=== PATIENT | male | born 1995 | race African-American/Black ===

== ENCOUNTER 2019-12-31 16:50 | Inpatient (IN) ==
--- NOTE | 2019-12-31 17:16 | PROVIDER DOCUMENTATION ---
HPI-Male Problem - General Chief Complaint: Syncope Stated Complaint: SYNCOPE Time Seen by Provider: 12/31/19 16:56 Source: patient Allergies/Adverse Reactions: Patient Allergies Allergy/AdvReac Type Severity Reaction Status Date / Time No Known Allergies Allergy Verified 12/31/19 16:54 Home Medications: Home Medication List Medication Instructions Recorded Confirmed Last Taken Type NK [No Home Medications] 12/31/19 12/31/19 Unknown History - History of Present Illness-Male Nature of Presenting Problem: Patient is a 24yo M who presents with complaints of L testicular and L lower abdominal pain which suddenly began approximately 1hr ago. 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 While in ED waiting room, he was vomiting in the bathroom, had a syncopal episode, and was escorted immediately to a room by staff. Reports he believes he passed out d/t pain and vomiting. Patient states he has not voided since earlier this morning, as he was asleep most of the day. Reports last BM was 15 mins ago and was normal. Denies fever, penile discharge, diarrhea, blood in emesis/stool, dizziness, SOB, or CP. Location of Complaint: reports: LLQ, scrotal (L) Radiation: reports: none Quality of Pain: reports: sharp, stabbing Severity in ED: reports: moderate Onset/Duration: reports: 1 hour ago Timing: reports: still present Context/Activities at Onset: reports: sleep Last urinated? (time): 07:45 (pt reports he was sleeping during the day until pain) Associated Symptoms: reports: pain/swelling in testicle (L) Associated Symptoms: reports: nausea, syncope, vomiting. denies: constipation, diarrhea, fever/chills Similar Symptoms Previously?: No Recently seen or treated by another doctor?: No Review of Systems - Adult - REVIEW OF SYSTEMS - ADULT Constitutional: reports: no symptoms reported. denies: chills, fever Eyes: reports: no symptoms reported Ears, Nose, Mouth & Throat: reports: no symptoms reported Cardiovascular: reports: no symptoms reported. denies: chest pain, palpitations Respiratory: reports: no symptoms reported. denies: cough, shortness of breath Gastrointestinal: reports: see HPI, abdominal pain, nausea, vomiting. denies: diarrhea Genitourinary: reports: see HPI, other (L testicular pain). denies: discharge Musculoskeletal: reports: no symptoms reported Integumentary: reports: no symptoms reported Neurological: reports: see HPI, syncope. denies: dizziness/vertigo, headache/migraines, paresthesia Psychiatric: reports: no symptoms reported Endocrine: reports: no symptoms reported Past History - Adult - PAST MEDICAL HISTORY-ADULT Review of Records: reports: Nursing Assessment Review, Medications Reviewed Major Childhood Illnesses: reports: denies history Cardiovascular: reports: denies history Respiratory: reports: denies history Gastrointestinal: reports: denies history Obstetrical/Gynecological: reports: denies history Genitourinary: reports: denies history Musculoskeletal: reports: denies history Neurological: reports: denies history Endocrine/Immune: reports: denies history Other Conditions: reports: denies history - PRIOR SURGERIES/PROCEDURES Surgical/Procedure History: reports: tonsillectomy - IMMUNIZATION STATUS Childhood Immunizations: See Nurse Assessment Flu Vaccine: See Nurse Assessment - FAMILY HISTORY Family History: reviewed, not pertinent - SOCIAL HISTORY Smoking: denies, non-smoker Physical Exam-General - PHYSICAL EXAM-ADULT Initial Vital Signs Reviewed: Yes - CONSTITUTIONAL General Appearance: alert, mild distress. negative: lethargic, slow to respond - EYES Eyes: PERRL/EOMI, pink conjunctivae. negative: EOM palsy, photophobia, scleral icterus - HEAD, EARS, NOSE, MOUTH & THROAT HENMT: normocephalic/atraumatic. negative: angioedema, dental decay - NECK Neck: full range of motion, supple, normal inspection - RESPIRATORY Respiratory: chest non-tender, lungs clear, normal breath sounds, no pleuratic chest pain, no respiratory distress, no accessory muscle use. negative: crackles, rales, rhonchi, stridor, wheezing, retractions, splinting - CARDIOVASCULAR Cardiovascular: regular rate, rhythm, no gallop - GASTROINTESTINAL (ABDOMEN) Abdominal Exam: normal bowel sounds, soft, tenderness (LLQ). negative: rigid - GENITOURINARY Male Genitalia: normal genitalia, circumcised, testicular tenderness (L). negative: scrotal swelling, urethral discharge Rectal Exam: deferred Hemoccult Exam: deferred - MUSCULOSKELETAL Back Exam: normal inspection, no CVA tenderness Extremity: normal range of motion, non-tender, normal inspection - SKIN Integumentary: normal color, normal turgor, warm/dry. negative: cyanosis, jaundice, pallor - NEUROLOGIC Neurologic: grossly normal. negative: abnormal gait, aphasia, EOM palsy - PSYCHIATRIC Psych/Mental Status: normal mood/affect, normal thought content, normal thought process, oriented x 3 Progress - PLAN OF CARE/RESULTS Progress/Plan/Lab Results: Vital Signs - 8 hr 12/31/19 16:51 12/31/19 17:21 12/31/19 21:08 Temperature 97.8 F Pulse Rate 86 89 Pulse Rate [Sitting] 72 Pulse Rate [Standing] 80 Pulse Rate [Supine] 74 Respiratory Rate 18 16 Blood Pressure 137/62 148/112 Blood Pressure [Sitting] 140/110 Blood Pressure [Standing] 135/112 Blood Pressure [Supine] 140/110 O2 Sat by Pulse Oximetry 99 98 Laboratory Results - last 24 hr 12/31/19 12/31/19 12/31/19 17:13 17:13 18:49 WBC 7.27 RBC 7.62 H Hgb 16.5 Hct 51.3 MCV 67.3 L MCH 21.7 L MCHC 32.2 L RDW Std Deviation 17.3 H Plt Count 329 MPV 11.9 H Immature Gran % (Auto) 0.3 Neut % (Auto) 61.3 Lymph % (Auto) 28.1 [place] % (Auto) 9.2 Eos % (Auto) 0.8 Baso % (Auto) 0.3 Immature Gran # (Auto) 0.02 Neut # (Auto) 4.46 Lymph # (Auto) 2.04 [place] # (Auto) 0.67 H Eos # (Auto) 0.06 Baso # (Auto) 0.02 Segmented Neutrophils Not Reportable Sodium 141 Potassium 4.6 Chloride 102 Carbon Dioxide 24 L Anion Gap 15 BUN 24 H Creatinine 2.1 H Estimated GFR/1.73 m2 38 BUN/Creatinine Ratio 11 Glucose 120 H Calculated Osmolality 286 Calcium 9.2 Total Bilirubin 0.30 AST 33 ALT 26 Alkaline Phosphatase 72 Total Protein 7.4 Albumin 4.4 Globulin 3.0 Albumin/Globulin Ratio 1.0 Lipase 32 Urine Source CLEAN CATCH Urine Color YELLOW Urine Turbidity CLEAR Urine pH 8.0 Ur Specific [place] 1.018 Urine Protein 300 A Ur Glucose (Stick) 100 A Ur Ketones (Stick) NEGATIVE Urine Blood SMALL A Urine Nitrite NEGATIVE Urine Bilirubin NEGATIVE Urobilinogen Dipstick NORMAL Urine Leukocytes NEGATIVE Urine WBC (Auto) <10 Urine RBC (Auto) <10 U Epithel Cells (Auto) <10 Urine Bacteria (Auto) NEGATIVE Urine Opiates Screen Ur Oxycodone Screen Urine Methadone Screen U Propoxyphene Qual Ur Barbituates Screen Ur Tricyclics Screen Ur Phencyclidine Scrn Ur Amphetamines Screen U Methamphetamines Scrn U Benzodiazepines Scrn Urine Cocaine Screen U Cannabinoids Screen 12/31/19 18:49 WBC RBC Hgb Hct MCV MCH MCHC RDW Std Deviation Plt Count MPV Immature Gran % (Auto) Neut % (Auto) Lymph % (Auto) [place] % (Auto) Eos % (Auto) Baso % (Auto) Immature Gran # (Auto) Neut # (Auto) Lymph # (Auto) [place] # (Auto) Eos # (Auto) Baso # (Auto) Segmented Neutrophils Sodium Potassium Chloride Carbon Dioxide Anion Gap BUN Creatinine Estimated GFR/1.73 m2 BUN/Creatinine Ratio Glucose Calculated Osmolality Calcium Total Bilirubin AST ALT Alkaline Phosphatase Total Protein Albumin Globulin Albumin/Globulin Ratio Lipase Urine Source Urine Color Urine Turbidity Urine pH Ur Specific [place] Urine Protein Ur Glucose (Stick) Ur Ketones (Stick) Urine Blood Urine Nitrite Urine Bilirubin Urobilinogen Dipstick Urine Leukocytes Urine WBC (Auto) Urine RBC (Auto) U Epithel Cells (Auto) Urine Bacteria (Auto) Urine Opiates Screen PRESUMPTIVE POSITIVE A Ur Oxycodone Screen NONE DETECTED Urine Methadone Screen NONE DETECTED U Propoxyphene Qual NONE DETECTED Ur Barbituates Screen NONE DETECTED Ur Tricyclics Screen NONE DETECTED Ur Phencyclidine Scrn NONE DETECTED Ur Amphetamines Screen NONE DETECTED U Methamphetamines Scrn NONE DETECTED U Benzodiazepines Scrn NONE DETECTED Urine Cocaine Screen NONE DETECTED U Cannabinoids Screen NONE DETECTED Orders Category Date Time Status ED: Orthostatic Vital Signs (E DIRECTED Care 12/31/19 16:56 Active FSBS [Finger Stick Blood Sugar (ED)] DIRECTED Care 12/31/19 16:55 Completed Saline Loc NOW Care 12/31/19 16:[address] ABDOMEN/PELVIS W/O CONTRAST [CT] Stat Exams 12/31/19 18:29 Completed US SCROTUM [US] Stat Exams 12/31/19 17:02 Completed CBC WITH ELECTRONIC DIFF [HEME] Stat Lab 12/31/19 17:13 Completed COMPREHENSIVE METABOLIC PANEL [CHEM] Stat Lab 12/31/19 17:13 Completed LIPASE [CHEM] Stat Lab 12/31/19 17:13 Completed URINALYSIS W/POSS RFLX CULT [URINALYSIS] Stat Lab 12/31/19 18:49 Completed URINE DRUG SCREEN PL Stat Lab 12/31/19 18:49 Completed 0.9% Sodium Chloride Inj [Ns] 1,000 ml Med 12/31/19 19:14 Active IV 100 mls/hr 0.9% Sodium Chloride Inj [Ns] 1,000 ml Med 12/31/19 17:20 Discontinued IV 999 mls/hr Ketorolac [Toradol] Med 12/31/19 17:20 Discontinued 30 mg IV NOW ONE Morphine Med 12/31/19 19:01 Discontinued 2 mg IV NOW ONE Morphine Med 12/31/19 17:25 Discontinued 4 mg IV NOW ONE Ondansetron [Zofran] Med 12/31/19 17:20 Discontinued 4 mg IV NOW ONE Tamsulosin [Flomax] Med 12/31/19 20:22 Discontinued 0.4 mg PO NOW ONE Transfer/Admit Order [TRANSFER] Routine Transfer 12/31/19 20:34 Ordered Lab results, imaging results, plan of care, and need for admission discussed with patient who agrees with and verbalizes understanding. Result Diagrams: 12/31/19 17:13 12/31/19 17:13 - CT/MRI 1 CT Study: Abdomen, Pelvis Impression: See EMR Report ([facility] - [address], [place] [address] [facility] - [address] [place] [address] Department of Imaging Patient: DAYRON ALEXANDERADM Date: 12/31/19#: [id number] : 1995ADM Status: REG ERAcct#: [id number] Age/Sex: 24/MRoom/Bed: Loc: P.ED Ordering Physician: Cookie Covarrubias Family Physician: None,PCP Reason for Procedure: LLQ/testicular pain Signed EXAM: CT ABDOMEN/PELVIS W/O CONTRAST 12/31/2019 HISTORY: LLQ/testicular pain TECHNIQUE: This exam was performed using automated exposure control, adjustment of mA or kV according to patient size, and/or use o f iterative reconstruction technique. COMMENT: There is no evidence of acute disease in the visualized portion of the chest. There is perinephric stranding and hydronephrosis on the left. There is bilateral nephrolithiasis with 3 mm sized stones bilaterally. There is a stone in the distal left ureter just above the ureterovesical junction measuring 3 mm in diameter. The urinary bladder is not distended. There is no evidence of appendicitis or bowel obstruction. There are no apparent gallstones. The regional skeleton appears to be intact. There is a bone island in the ischium on the right. IMPRESSION: Bilateral nephrolithiasis with distal left ureterolithiasis and obstructive changes on the left. Electronically signed by Marty Alvarez 12/31/2019 7:53 PM 12/31/191952 Interpreting Physician: Marty Alvarez MD Dictated Date/Time: 12/31/191950 cc: Cookie Esteves; None,PCP) - ULTRASOUND (By Radiology) 1 US Study: Scrotum Impression: See EMR Report ([facility] - [address] [place] [address] [address], [place] [address] [facility] - [address] [place] [address] Department of Imaging Patient: DAYRON ALEXANDERADM Date: 12/31/19#: [id number] : 1995ADM Status: REG ERAcct#: [id number] Age/Sex: 24/MRoom/Bed: Loc: P.ED Ordering Physician: Cookie Covarrubias Family Physician: None,PCP Reason for Procedure: sudden onset L testicular pain ___ Signed EXAM: US SCROTUM 12/31/2019 HISTORY: sudden onset L testicular pain TECHNIQUE: Scrotal ultrasound COMMENT: There is a cyst in the left hemiscrotum which is apparently in the tail of the epididymis. This measures 11 mm in diameter. There is color flow in both testicles. There is a 4 mm cyst in the head of the left epididymis. IMPRESSION: Epididymal cysts on the left. No evidence of testicular torsion. Electronically signed by Marty Alvarez 12/31/2019 6:33 PM 12/31/191832 Interpreting Physician: Marty Alvarez MD Dictated Date/Time: 12/31/191830 cc: Cookie Esteves; None,PCP) - CONSULTS/PCP/HOSPITALIST Notification #1 *Consult/PCP/Hospitalist*: Ty Ibarraist Time Discussed: 20:20 Reason/Comments: Nephrolithiasis; obstructing stone; ARF Consult Disposition: Admit (To hospitalist; will consult) #2 Consult: Dr. Hernandez Time Discussed: 20:30 Reason/Comments: Nephrolithiasis; obstructing stone; ARF Consult Disposition: Admit Departure - Departure Date of Disposition Decision: 12/31/19 Time of Disposition Decision: 20:30 DIAGNOSIS: Bilateral nephrolithiasis, Hydronephrosis with renal calculous obstruction, Testicular pain, left Acute renal failure Qualifiers: Acute renal failure type: unspecified Qualified Code(s): N17.9 - Acute kidney failure, unspecified Abdominal pain Qualifiers: Abdominal location: left lower quadrant Qualified Code(s): R10.32 - Left lower quadrant pain Episode of syncope Qualifiers: Syncope type: unspecified Qualified Code(s): R55 - Syncope and collapse Disposition: ADMITTED INPATIENT 09 Certified Medical Emergency: Emergent Condition: Stable Referrals and Follow-Ups: None,PCP [Primary Care Provider] - - Critical Care Note This patient required my direct & personal management of CC.: No Attestation - Physician/ SKIP Attestation Patient care was provided by Advanced Practice Provider:: Yes Advanced Practice Provider:: Cookie Esteves Advanced Practice Provider documentation review:: The Mid-level provider documentation, treatment plan and medical decision making was reviewed by the physician who agrees with all treatment and medical decision making by the MLP. The physician spent face to face time with patient:: No Advanced Practice Provider documentation review:: Supervising physician onsite and consulted in the evaluation and care of this patient. The physician did not have a face to face encounter with the patient.
[2019-12-31] MEDS ORDERED: NS 1,000 ML IV ONE ×3 (17:20→23:45)
[2019-12-31] MEDS ORDERED: ZOFRAN IV ONE (17:20)
[2019-12-31] MEDS ORDERED: TORADOL IV ONE (17:20)
[2019-12-31] MEDS ORDERED: MORPHINE IV ONE ×2 (17:25→19:01)
[2019-12-31 17:30] LABS: BASO# 0.02 X1000 (0.0-0.2); BASO% 0.3 % (0.0-0.8); EOS# 0.06 X1000 (0.0-0.7); EOS% 0.8 % (0.0-10.0); HEMATOCRIT 51.3 % (42.0-52.0); HEMOGLOBIN 16.5 g/dL (14.0-18.0); IMM GRAN# 0.02 X1000 (0.0-0.04); IMM GRAN% 0.3 % (0.0-0.5); LYMPH# 2.04 X1000 (1.2-3.4); LYMPH% 28.1 % (20.5-51.1); MCH 21.7 PG (27-31); MCHC 32.2 g/dL (33-37); MCV 67.3 FL (81-99); MONO# 0.67 X1000 (0.11-0.59); MONO% 9.2 % (1.7-9.3); MPV 11.9 FL (7.4-10.4); NEUT# 4.46 X1000 (1.4-6.5); NEUT% 61.3 % (42.2-75.2); PLT 329 X1000 (130-400); RBC 7.62 XMIL (4.7-6.1); RDW 17.3 % (11.5-14.5); WBC 7.27 X1000 (4.8-10.8)
[2019-12-31 17:41] LABS: ALBUMIN 4.4 g/dL (3.5-5.0); CALCIUM 9.2 mg/dL (8.8-10.2); CREATININE 2.1 mg/dL (0.7-1.2); POTASSIUM 4.6 mmol/L (3.5-5.1); TOTAL BILIRUBIN 0.3 mg/dL (0.20-1.00); TOTAL PROTEIN 7.4 g/dL (6.3-8.3)
--- NOTE | 2019-12-31 18:35 | Diag Imaging Result Doc PS360 ---
EXAM: US SCROTUM 12/31/2019 HISTORY: sudden onset L testicular pain TECHNIQUE: Scrotal ultrasound COMMENT: There is a cyst in the left hemiscrotum which is apparently in the tail of the epididymis. This measures 11 mm in diameter. There is color flow in both testicles. There is a 4 mm cyst in the head of the left epididymis. IMPRESSION: Epididymal cysts on the left. No evidence of testicular torsion. Electronically signed by Marty Alvarez 12/31/2019 6:33 PM
[2019-12-31 19:04] LABS: URINE SOURCE CLEAN CATCH
[2019-12-31 19:07] LABS: BILIRUBIN URINE NEGATIVE (NEGATIVE); BLOOD URINE SMALL (NEGATIVE); COLOR YELLOW; GLUCOSE URINE 100 mg/dL (NEGATIVE); KETONE URINE NEGATIVE (NEGATIVE); LEUKOCYTES URINE NEGATIVE (NEGATIVE); NITRITE URINE NEGATIVE (NEGATIVE); PROTEIN URINE 300 mg/dL (NEGATIVE); SP GRAVITY URINE 1.018; TURBIDITY URINE CLEAR (CLEAR); UROBILINOGEN URINE NORMAL (NORMAL)
[2019-12-31 19:09] LABS: UR EPITHELIAL CELLS <10 /HPF (<10); URINE BACTERIA NEGATIVE /HPF; URINE RBC <10 /HPF (<10); URINE WBC <10 /HPF (<10)
[2019-12-31 19:17] LABS: UR AMPHETAMINES QUAL NONE DETECTED (NONE DETECT); UR BARBITUATES QUAL NONE DETECTED (NONE DETECT); UR BENZODIAZEPIN QUAL NONE DETECTED (NONE DETECT); UR CANNABINOIDS QUAL NONE DETECTED (NONE DETECT); UR COCAINE QUAL NONE DETECTED (NONE DETECT); UR METHADONE QUAL NONE DETECTED (NONE DETECT); UR METHAMPHETAMINE QUAL NONE DETECTED (NONE DETECT); UR OPIATES QUAL PRESUMPTIVE POSITIVE (NONE DETECT); UR OXYCODONE QUAL NONE DETECTED (NONE DETECT); UR PCP QUAL NONE DETECTED (NONE DETECT); UR PROPOXYPHENE QUAL NONE DETECTED (NONE DETECT); UR TCA QUAL NONE DETECTED (NONE DETECT)
--- NOTE | 2019-12-31 19:55 | Diag Imaging Result Doc PS360 ---
EXAM: CT ABDOMEN/PELVIS W/O CONTRAST 12/31/2019 HISTORY: LLQ/testicular pain TECHNIQUE: This exam was performed using automated exposure control, adjustment of mA or kV according to patient size, and/or use of iterative reconstruction technique. COMMENT: There is no evidence of acute disease in the visualized portion of the chest. There is perinephric stranding and hydronephrosis on the left. There is bilateral nephrolithiasis with 3 mm sized stones bilaterally. There is a stone in the distal left ureter just above the ureterovesical junction measuring 3 mm in diameter. The urinary bladder is not distended. There is no evidence of appendicitis or bowel obstruction. There are no apparent gallstones. The regional skeleton appears to be intact. There is a bone island in the ischium on the right. IMPRESSION: Bilateral nephrolithiasis with distal left ureterolithiasis and obstructive changes on the left. Electronically signed by Marty Alvarez 12/31/2019 7:53 PM
[2019-12-31] MEDS ORDERED: FLOMAX PO ONE (20:22)
[2019-12-31] MEDS ORDERED: ZOFRAN IV PRN (22:39)
[2019-12-31] MEDS: MORPHINE IV PRN (23:12)
[2019-12-31] MEDS ORDERED: TYLENOL PO PRN (23:18)
--- NOTE | 2019-12-31 23:58 | EKG Report ---
Test Performed on : 12/31/2019 11:23:45 PM Test Reason : near-syncope Blood Pressure : / mmHG Vent. Rate : 064 BPM Atrial Rate : 064 BPM P-R Int : 156 ms QRS Dur : 100 ms QT Int : 402 ms P-R-T Axes : 047 053 054 degrees QTc Int : 414 ms Normal sinus rhythm. Minimal voltage criteria for LVH, may be normal variant Borderline ECG No previous ECGs available Confirmed by Shira Mejía MD ([id number]) on 01/03/2020 8:31:35 AM
[2020-01-01] MEDS: ROCEPHIN 1 GM in NS 50 ML IV SCH ×2 (00:56→22:36)
[2020-01-01] MEDS: NS 1,000 ML IV SCH ×2 (00:57→06:38)
--- NOTE | 2020-01-01 01:06 | HISTORY AND PHYSICAL ---
ADDENDUM: Comes in with diffuse abdominal pain left greater than right. The pain was radiating down to his scrotal area. Ultrasound was done. It showed no evidence of torsion of his testes. CT scan done which showed bilateral ureteral obstruction at the UV junction. Stone is measured about 3 mm. The patient admits to having chills but no fever. No dysuria. No GI complaints. While in the ER, he had passed out due to the intense nature of the crampy pain in his abdomen. His BUN and creatinine were also notably elevated at 24 and 21, and he denies any renal issues in the past although his father does have kidney issues. His white count is normal. Hemoglobin and hematocrit 16 and 51. He has a low MCV, but a normal RBC count probably indicative of beta thalassemia or a hemoglobinopathy. Dr. Ibarra was notified. Patient will be admitted. Fluids will be administered. Flomax will be started. Ideally, Toradol has been useful but his creatinine precludes this. We will cover him empirically with antibiotics in anticipation of possible surgical intervention to remove stones although with 3 mm stones hopefully can past this to avoid surgical intervention. No family history of kidney stones per his father or the patient. PTH was ordered. Uric acid ordered to rule out possible secondary causes of idiopathic stone formation. cc: Nolvia Hernandez MD MTDD
[2020-01-01] MEDS: MORPHINE IV PRN ×3 (03:27→12:55)
--- NOTE | 2020-01-01 06:42 | HISTORY AND PHYSICAL ---
PRIMARY CARE PHYSICIAN: The patient does not have a primary care provider. CHIEF COMPLAINT: Abdominal pain. HISTORY OF PRESENT ILLNESS: Mr. Bustamante is a 24-year-old male who presented to the [place] [facility] ER this evening at 16:50. The patient states that earlier this afternoon at approximately 2:30 in the afternoon he did have a sudden onset of testicular pain initially. Then, he did begin to have suprapubic pain that radiated up around his left-side and flank into his lower back. The patient reports that the pain is constant, sharp and crampy in nature. He does report that he has had some nausea and approximately 3 episodes of vomiting though no reported hematemesis, or coffee- ground emesis. He denies any diarrhea. He denies any hematochezia or melena. He reports his last bowel movement was this morning. The patient denies any dysuria or any difficulty urinating. He has reported some chills as well. He did present to the ER at [facility] [facility]. While he was in the waiting room, he stated that he was going to get a drink of water, and that he had a near syncopal episode. He did go to the ground though the patient stated that he caught himself. He denied any loss of consciousness, and denied hitting his head. He is not reporting any other near syncopal episodes since that time. He denies any dizziness, except for briefly after he received morphine in the ER. He denied any chest pain, shortness of breath, or cough. He denies any pain, numbness, tingling or swelling in extremities. Upon evaluation in the ER at [facility], he was noted to have blood present in his urine. There are no signs of infection. He also does have an acute kidney injury with a creatinine of 2.1 with GFR of 38. CT scan did show that he had bilateral nephrolithiasis with distal left ureteral lithiasis, and obstructive changes on the left. He was given Flomax, 1 L normal saline bolus, morphine and Zofran in the ER at [facility]. They did contact Dr. Ibarra with Urology to notify him as well. He will see him in the morning. The patient has been transferred to [facility] for further treatment and evaluation. REVIEW OF SYSTEMS: A 14 point review of systems was conducted with the patient. All were negative except for pertinent positives mentioned above in HPI. PAST MEDICAL HISTORY: The patient denies any previous medical history. PAST SURGICAL HISTORY: The patient denies any previous surgical history. SOCIAL HISTORY: The patient denies any past or present tobacco, alcohol or illicit drug use. His dad was present at bedside during our examination. The patient works at a Company named [employer] in [place]. HOME MEDICATIONS: The patient denies any prescription medication use. ALLERGIES: The patient denies any known allergies. DIAGNOSTIC DATA: White blood cell count is 7270, hemoglobin 16.5, hematocrit 51.3, and platelet count is 329,000. Sodium 141, potassium 4.6, chloride 102, serum bicarb 24, BUN 24, creatinine 2.1 with GFR 38, glucose 120, and lipase 32. Urinalysis was obtained via clean catch, and was positive for protein, glucose, and blood though was negative for ketones, nitrites, leukocytes, white blood cells, or bacteria. Urine drug screen was positive for opiates though at the time this was collected, the patient had already received morphine in the ER intravenously. Ultrasound of the scrotum did show an epididymal cyst on the left. There was no evidence of testicular torsion. CT of the abdomen and pelvis without contrast that showed bilateral nephrolithiasis with distal left ureteral lithiasis and obstructive changes on the left. There was a stone in the distal left ureter just above the ureterovesical vesicular junction measuring 3 mm in diameter. PHYSICAL EXAMINATION: VITAL SIGNS: Temperature 97.8 degrees, heart rate 89, respirations 16, blood pressure 148/112 with a MAP of 120, and oxygen saturation 98%. The patient is reporting 8/10 pain at this time. GENERAL: Mr. Bustamante is a pleasant 24-year-old male who is resting in the inpatient bed. He was in no acute distress. He was awake, alert, and able to answer questions appropriately. HEENT: Head is atraumatic, normocephalic. Pupils are equal, round, and reactive to light, and were 3 mm bilaterally and brisk. Oral mucosa was moist. Oropharynx was clear. NECK: Supple. Trachea midline. CARDIOVASCULAR: Patient has S1-S2 present. No murmurs, gallops, or rubs appreciated with a regular rate and rhythm. PULMONARY: Patient has symmetrical chest expansion bilaterally. Lung sounds clear to auscultation in bilateral full lee. ABDOMEN: Soft, maybe slightly distended. He was tender in right and left lower quadrants around his left flank and left lower back. Bowel sounds were present in all 4 quadrants, and were slightly hypoactive. EXTREMITIES: No cyanosis or edema noted. Pulse, motor, and sensory were intact in all extremities. Radial and pedal pulses were 2+ bilaterally. INTEGUMENTARY: The patient's skin color is normal for his race. Dry and intact. NEUROLOGICAL: Patient is alert and oriented to person, place and time. He is able to move all extremities. There are no focal neurological deficits noted. ASSESSMENT AND PLAN: 1. Bilateral nephrolithiasis with distal left ureterolithiasis and obstructive changes. 2. Left epididymal cyst. For #1 and #2, we have placed a consult with Dr. Ibarra with Urology. The patient has been transferred to [facility] for further treatment evaluation and Urology will see him in the morning. He will be NPO after midnight. He did receive 1 L normal saline bolus in the ER. We will continue with normal saline at 175 mL/h. We will add on further studies of a uric acid and PTH. The patient has not been febrile. He had no leukocytosis, but he has been reporting chills. We will go ahead and cover him with antibiotic of Rocephin IV. We will await Urology's evaluation and further recommendations for management. 3. Acute kidney injury. The patient does not have any previous labs for comparison in that he denies any known kidney disease. This may be secondary to his kidney stone, and possibly some fluid volume depletion from his reported nausea and vomiting episodes. We will continue with IV hydration as mentioned above. We will avoid nephrotoxic medications and renally dose medicines as necessary. 4. Nausea and vomiting. We will continue with antiemetics. 5. Fluid volume depletion. We will continue with IV hydration as mentioned above. 6. Deep vein thrombosis prophylaxis provided with sequential compression devices. 7. The patient has been placed on the surgical floor with telemetry. He will have vital signs q.8 hours. We will do strict intake and output. We will repeat a CBC and BMP in the morning. Further orders and recommendations pending hospital course, diagnostic studies, and physician evaluation. Also, the patient did have a near syncopal episode in the ER awaiting him at [facility] [facility]. He has not had any further episodes of dizziness, lightheadedness, or syncope. He is not reporting any chest pain or shortness of breath. We will go ahead and obtain an EKG just for further evaluation. Dictated by BRANDI Denney for Nolvia Hernandez MD cc: Nolvia Hernandez MD
[2020-01-01 08:29] LABS: BASO# 0.01 X1000 (0.0-0.2); BASO% 0.1 % (0.0-0.8); HEMATOCRIT 52.8 % (42.0-52.0); HEMOGLOBIN 16.7 g/dL (14.0-18.0); IMM GRAN# 0.02 X1000 (0.0-0.04); IMM GRAN% 0.2 % (0.0-0.5); LYMPH# 1.68 X1000 (1.2-3.4); LYMPH% 13.1 % (20.5-51.1); MCH 21.5 PG (27-31); MCHC 31.6 g/dL (33-37); MONO# 1.18 X1000 (0.11-0.59); MONO% 9.2 % (1.7-9.3); MPV 11.8 FL (7.4-10.4); NEUT# 9.94 X1000 (1.4-6.5); NEUT% 77.4 % (42.2-75.2); PLT 267 X1000 (130-400); RBC 7.76 XMIL (4.7-6.1); RDW 18.3 % (11.5-14.5); WBC 12.83 X1000 (4.8-10.8)
[2020-01-01 09:13] LABS: CALCIUM 8.7 mg/dL (8.8-10.2); CREATININE 2.7 mg/dL (0.7-1.2); POTASSIUM 4.9 mmol/L (3.5-5.1)
[2020-01-01] MEDS: FLOMAX PO SCH ×2 (10:56→22:01)
[2020-01-01] MEDS ORDERED: DIPRIVAN 1% ONE (14:06)
[2020-01-01] MEDS ORDERED: XYLOCAINE-MPF 2% ONE (14:06)
[2020-01-01] MEDS ORDERED: FENTANYL ONE (14:09)
[2020-01-01] MEDS ORDERED: ZOFRAN ONE (14:56)
[2020-01-01] MEDS ORDERED: DECADRON ONE (14:56)
[2020-01-01] MEDS ORDERED: PYRIDIUM PO PRN (15:43)
--- NOTE | 2020-01-01 18:07 | PROGRESS NOTE ---
DATE: 01/01/2020 INTERVAL HISTORY: Patient's pain controlled. Currently n.p.o. for urologic procedure later today. No new complaints. REVIEW OF SYSTEMS: Twelve point review of systems negative except as per interval history. LABS: WBC 12.8, hemoglobin 16.7, hematocrit 52.8, platelets 267,000. Sodium 142, potassium 4.9, bicarb 20, BUN 23, creatinine 2.7, glucose 76. VITAL SIGNS: T-max 99.1 degrees, pulse 54, respirations 20, blood pressure 163/104, O2 saturation 100% on room air. PHYSICAL EXAMINATION: General: No acute distress. Vital signs: As above. HEENT: Normocephalic, atraumatic. Moist mucous membranes. No cervical adenopathy. Cardiovascular: Slightly bradycardic but regular. No murmurs noted. Pulmonary: Clear to auscultation bilaterally. No wheezing, rales, or rhonchi. Abdomen: Soft. Moderate diffuse tenderness without thor rebound or guarding. Bowel sounds decreased. Extremities: Peripheral pulses intact. No clubbing, cyanosis, or edema. Neurologic: Cranial nerves grossly intact. No focal deficits identified. Psychiatric: Normal mood and affect. Awake, alert, oriented x3. ASSESSMENT AND PLAN: 1. Acute kidney injury, likely secondary to obstruction as below. Going for urologic procedure later today. Continue fluids and monitor. 2. Hydronephrosis with bilateral kidney stones, likely contributing to acute kidney injury as above. Going for urologic procedure later today. 3. Nausea and vomiting, improved. 4. Syncope, likely vasovagal versus dehydration related. Has not reoccurred. 5. Leukocytosis. Patient on empiric antibiotic with Rocephin currently which we will continue for now.
--- NOTE | 2020-01-02 07:25 | CONSULTATION ---
DATE OF CONSULTATION: 01/01/2020 CHIEF COMPLAINT: Left scrotal pain and obstructing left ureteral stone. HISTORY OF PRESENT ILLNESS: Mr. Bustamante is a 24-year-old, male, who presented to [facility] yesterday after he woke up around 2:30 in the afternoon with a significant onset of left testicular pain. He was having pain in the suprapubic area that radiated into his left side and flank. The patient presented to the emergency room, and while in the emergency room, he had an episode of syncope due to the scrotal and flank pain itself, and he was brought back and evaluated. The patient had a scrotal ultrasound performed, which showed left epididymal cyst with good supply to the testicles, and a CT scan, which showed an obstructing left ureteral stone near the ureterovesical junction with associated hydronephrosis, as well as bilateral renal stones. Lab work showed an elevated creatinine at 2.1, from unknown baseline. White blood cell count was 7.3. Due to acute kidney injury, it was recommend that he be admitted to the hospital. The patient was evaluated this morning, and states his pain is somewhat better. He was given Flomax as well as IV fluids, morphine, and Zofran in the emergency room. He was transitioned to [facility] for evaluation by Urology. The patient states he has not had prior stone events, and denies family history of kidney stones. The patient has been hypertensive, which he states is new for him. ALLERGIES: No known drug allergies. HOME MEDICATIONS: Denies home medications. PAST MEDICAL HISTORY: Denies past medical history. PAST SURGICAL HISTORY: Tonsillectomy. SOCIAL HISTORY: Denies tobacco, alcohol, or illicit drug use. FAMILY HISTORY: Denies family history of malignancies. REVIEW OF SYSTEMS: A 12-point review of systems was performed with all pertinent positives and negatives in the HPI. PHYSICAL EXAMINATION: Vital Signs: Temperature 98.6, heart rate 57, blood pressure 168/105, oxygen saturation 100% on room air. General: No acute distress. Resting comfortably in bed. Alert and oriented x3. Respiratory: Good respiratory effort, without audible wheezing or rales. HEENT: Normocephalic, atraumatic. Pupils equal, round, reactive to light. Neck: Trachea midline. Cardiovascular: Regular rate and rhythm. Abdomen: Soft, nondistended. Slight tenderness to palpation of the left lower quadrant. : No suprapubic tenderness. Mild left CVA tenderness. Bilateral testicles are palpated without masses. A small epididymal cyst is felt on the left side, which is nontender to palpation. Normal phallus with orthotopic meatus. Neurologic: Gross motor and sensory intact. Skin: No skin lesions or rashes. Musculoskeletal: Moving all extremities. LABORATORY DATA: White blood cell count 12.8, hemoglobin 16.7, hematocrit 52.8, platelets 267,000. Sodium 142, potassium 4.9, chloride 106, bicarb 20, BUN 23, creatinine 2.7, glucose 76, calcium 8.7. PTH 73. IMAGING: CT of the abdomen and pelvis was reviewed, which showed bilateral nonobstructing renal stones, with an obstructing left distal ureteral stone causing proximal hydronephrosis. Stone is present at the ureterovesical junction. Scrotal US shows good blood supply to both testicles with evidence of a left epididymal cyst. No evidence of intratesticular masses. ASSESSMENT AND PLAN: Mr. Bustamante is a 24-year-old who presented in consultation regarding epididymal cyst on the left side, scrotal pain, and obstructing left ureteral stone, with bilateral nonobstructing renal stones. Urology was consulted from the emergency room due to scrotal pain, and CT scan, which showed obstructing stone. The patient had acute kidney injury with creatinine elevated at 2.1. This is worsened today to 2.7. I talked with him, and recommended surgical intervention with cystoscopy, left ureteroscopy, laser lithotripsy, and stone basket extraction. I told him he would have a left ureteral stent afterwards to help drain the kidney to try to protect and allow the renal function to return to normal. After thorough discussion of the risks, including bleeding, infection, damage to surrounding structures, need for secondary procedures, and inability to remove the stones, the patient and his mother elected to proceed. Will plan to do this later this afternoon. Dictated consult followed written consult note at bedside prior to surgery. The patient underwent surgery this afternoon prior to this consult note being finalized. cc: MD MINERVA Tatum
--- NOTE | 2020-01-02 07:35 | OPERATIVE NOTE ---
PROCEDURE DATE: 01/01/2020 PREOPERATIVE DIAGNOSES: 1. Left scrotal pain. 2. Left obstructing ureteral stone. 3. Acute kidney injury. 4. Bilateral Renal Stones. POSTOPERATIVE DIAGNOSES: 1. Left scrotal pain. 2. Left obstructing ureteral stone. 3. Acute kidney injury. 4. Bilateral Renal Stones. PROCEDURE PERFORMED: 1. Cystoscopy. 2. Left ureteroscopy with stone basket extraction. 3. Left retrograde pyelogram. 4. Left ureteral stent placement. SURGEON: Jonathan Ibarra MD. WOMEN'S HEALTH CARE NURSE PRACTITIONER: None. COMPLICATIONS: None. BLOOD LOSS: 2 mL DRAINS: A 6 x 26 cm left ureteral stent. SPECIMENS REMOVED: Left ureteral stone. ANESTHESIA: LMA. INDICATIONS FOR PROCEDURE: Mr. Bustamante is a 24-year-old who presented to the emergency room complaining of left scrotal pain. The patient had a scrotal ultrasound which showed left epididymal cyst and he underwent a CT scan which showed a 3 mm obstructing left ureteral stone. The patient's renal function has worsened while in the hospital with a creatinine yesterday of 2.1, worsened to 2.7 today. In talking with him, I recommended cystoscopy and left ureteroscopy and stone removal. Risks, benefits, alternatives of the surgical procedure discussed with the patient and the patient elected to proceed DESCRIPTION OF PROCEDURE: After informed consent was obtained patient brought to the operating room, placed on the operating room table in supine position. The patient received preoperative antibiotics and underwent LMA placement. He was positioned into a dorsal lithotomy position and was prepped and draped in usual sterile fashion. A preoperative time-out was then performed with all parties in agreement, including anesthesia, surgical, nursing staff. At which point a 21- Gambian cystourethroscope was inserted through the urethra into the bladder. The patient had a normal urethra. No evidence of strictures or papular lesions. Once into the bladder the patient's prostate was small with no evidence of obstruction. Once inside the bladder the entirety of the bladder was inspected with no diverticulum, cellules, or trabeculations. Both ureteral orifices were seen and quite small. Once the entirety of the bladder was inspected, scouts fluoroscopy performed with no obvious stone seen at which point an open-ended catheter was then passed through the scope and a ZIPwire was passed through the open-ended catheter and into the left ureteral orifice. The wire was able to advance up into the kidney itself and this was left in place. The patient's bladder was decompressed and then the ureteroscope was removed and a semi-rigid ureteroscope was advanced through the urethra and into the bladder. Using a PTFE wire the left ureteral orifice was then easily cannulized and this was advanced with slight resistance into the distal ureter and up to the side of the stone. Using a Nile basket, it was grasped and easily removed and sent for analysis. I was able to advance the ureteroscope back into the ureteral orifice and advanced up into the mid ureter with no evidence of other stones. There was hydronephrosis proximal to this and a retrograde pyelogram was then performed which showed hydronephrotic left kidney and ureter. ZIPwire was left in place and the ureteroscope was slowly withdrawn showing no significant trauma to the ureter. The wire was left in place and then backloaded through the cystourethroscope and a 6 x 26 cm stent was advanced over the wire with good curl in the kidney and endoscopically visualized in the bladder. Good drainage seen through and around the stent. The patient's bladder was decompressed. The patient had several knots tied in the covering of his stent and it was cut short. He was awoken and was taken to recovery in stable condition. The patient will be admitted back to the floor for observation. We will follow up his renal function as he has had acute kidney injury on arrival. cc: Jonathan Ibarra MD MTDD
[2020-01-02] MEDS: FLOMAX PO SCH ×2 (08:10→21:17)
[2020-01-02 08:51] LABS: BASO# 0.01 X1000 (0.0-0.2); BASO% 0.1 % (0.0-0.8); EOS# 0.03 X1000 (0.0-0.7); EOS% 0.3 % (0.0-10.0); HEMOGLOBIN 16.3 g/dL (14.0-18.0); IMM GRAN# 0.02 X1000 (0.0-0.04); IMM GRAN% 0.2 % (0.0-0.5); LYMPH# 2.01 X1000 (1.2-3.4); LYMPH% 19.1 % (20.5-51.1); MCH 21.3 PG (27-31); MCHC 31.3 g/dL (33-37); MCV 67.8 FL (81-99); MONO# 0.56 X1000 (0.11-0.59); MONO% 5.3 % (1.7-9.3); NEUT# 7.92 X1000 (1.4-6.5); PLT 277 X1000 (130-400); RBC 7.67 XMIL (4.7-6.1); RDW 18.3 % (11.5-14.5); WBC 10.55 X1000 (4.8-10.8)
[2020-01-02 09:23] LABS: CALCIUM 9.2 mg/dL (8.8-10.2); CREATININE 2.4 mg/dL (0.7-1.2); POTASSIUM 4.5 mmol/L (3.5-5.1)
--- NOTE | 2020-01-02 09:34 | Diag Imaging Result Doc PS360 ---
RETROGRADES 2 OR 3 FILMS - 01/01/2020 INDICATION: LEFT RETROGRADE, LEFT STONE EXTRACTION, STENT TECHNIQUE: Unilateral left ureterogram. The exam was performed by the patient's urologist. Total fluoroscopy time was 15 seconds. 10 images were obtained. COMPARISON: CT from 12/31/2019 FINDINGS: There was instrumentation and wire placement in the left renal collecting system. The left ureterogram demonstrated hydroureteronephrosis. A left nephroureteral stent was placed in good position. IMPRESSION: No complication. Electronically signed by Felix Mancuso 01/02/2020 9:32 AM
--- NOTE | 2020-01-02 09:41 | PROGRESS NOTE ---
DATE: 01/02/2020 SUBJECTIVE: Overall, the patient seems to be doing well. He underwent cystoscopy with left ureteroscopy, stone extraction, and left ureteral stent yesterday. The patient's pain seems to be well controlled. He feels much better than yesterday. He said he noticed some blood in his urine initially but he feels that this is improving. He has voided several times and feels that his urination has cleared. Had some flank pain with urination, that has resolved. OBJECTIVE: Vital Signs: Temperature 98.4 degrees, heart rate 72, blood pressure 132/67, oxygen saturation 99% on room air. General: No acute distress. Resting comfortably in bed. Alert and oriented x3. Respiratory: Good respiratory effort without audible wheezing or rales. Abdomen: Soft, nontender, nondistended. : No suprapubic tenderness. No CVA tenderness. Urethral strings are externalized. Musculoskeletal: Moving all extremities. Labs: White blood cell count 10.55, hemoglobulin 16.3, hematocrit 52, platelets 277, sodium 141, potassium 4.5, chloride 104, bicarbonate 21, BUN 28, creatinine 2.4, glucose 118. ASSESSMENT AND PLAN: Mr. Bustamante is a 24-year-old who is postoperative day 1 from cystoscopy, left ureteroscopy, stone basket extraction, and left ureteral stent placement. Overall, patient seems to be doing well. His vital signs are stable and with improvement in his hypertension. Clinically, patient seems to be doing fine. We will follow up his labs and see if his renal function improves. The patient's stent is in place which can be removed on . This can be either done at home or in the office. If the patient improves today, could consider discharge as long as renal function improves, as clinically he seems to be with minimal pain. I encouraged him to be ambulatory today. The patient will need outpatient followup regarding his kidney stones. cc: Jonathan Ibarra MD [facility]
[2020-01-02 10:08] LABS: LYMPHS 30 % (21-51); MONO 4 % (1-9); SEGS 66 % (42-75)
[2020-01-02] MEDS: NS 1,000 ML IV SCH ×2 (11:20→21:17)
--- NOTE | 2020-01-02 16:16 | PROGRESS NOTE ---
DATE: 01/02/2020 INTERVAL HISTORY: The patient reports significant improvement in his discomfort since he had removal of obstructing stones yesterday with Urology. No acute events overnight. No new complaints. REVIEW OF SYSTEMS: Twelve point review of systems negative except as per interval history. LABS: WBC 10.5, hemoglobin 16.3, hematocrit 52.0, platelets 277,000. Sodium 141, potassium 4.5, bicarbonate 21, BUN 28, creatinine 2.4, glucose 118, calcium 9.2. VITAL SIGNS: T-max 98.4 degrees, pulse 79, respirations 18, blood pressure 153/83, O2 saturation 100% on room air. PHYSICAL EXAMINATION: General: No acute distress. Vitals: As above. HEENT: Normocephalic, atraumatic. Moist mucous membranes. No cervical adenopathy, adenopathy. Cardiovascular: Regular rate and rhythm. No murmurs noted. Pulmonary: Clear to auscultation bilaterally. No wheezing, rales, or rhonchi. Abdomen: Soft, nontender, nondistended. Bowel sounds positive. Extremities: Peripheral pulses intact. No clubbing, cyanosis, or edema. Neurologic: Cranial nerves grossly intact. No focal deficits. Psychiatric: Normal mood and affect. Awake, alert, oriented x3. ASSESSMENT AND PLAN: 1. Acute kidney injury secondary to obstruction. The patient is status post urologic procedure for stone removal and stenting of the left ureter. Patient's discomfort resolved, but kidney function only minimally improved. We will continue IV fluids and monitor kidney function for today. If his kidney function will improve significantly tomorrow, then he can likely be discharged home. 2. Nausea, vomiting, resolved. 3. Syncope, likely vasovagal secondary to illness. Has not been repeated. No cardiac issues identified.
[2020-01-02] MEDS: ROCEPHIN 1 GM in NS 50 ML IV SCH (23:50)
[2020-01-03] MEDS: NS 1,000 ML IV SCH ×2 (05:41→07:18)
[2020-01-03] MEDS: FLOMAX PO SCH (08:22)
[2020-01-03 11:40] VITALS: BP 162/93
--- NOTE | 2020-01-03 13:32 | PROGRESS NOTE ---
DATE: 01/03/2020 SUBJECTIVE: Postoperative day 2 from cystoscopy, left ureteroscopy, stone basket extraction, and left ureteral stent placement. Overall, patient is doing well. He denies significant pain. He is tolerating oral intake. Denies any fevers or chills. He states he is voiding with clear yellow urine and denies dysuria. He states he feels back to his normal state. OBJECTIVE: Vital Signs: Temperature 97.9 degrees, heart rate 72, blood pressure 160/93, oxygen saturation 100% on room air. General: No acute distress. Resting comfortably in bed. Alert and orient x3. Respiratory: Good respiratory effort without audible wheezing or rales. Abdomen: Soft, nontender, nondistended. : No suprapubic tenderness. No CVA tenderness. No morning labs today. ASSESSMENT AND PLAN: Mr. Bustamante is a 24-year-old who presented in consultation regarding obstructed uropathy from left ureteral stent. He underwent cystoscopy, left ureteroscopy, stone basket extraction, and left ureteral stent placement on 01/01/2020. Overall, the patient seems to be doing quite well and is scheduled to be discharged later today. I think his stent can likely be removed on Wednesday, initially told on . We will leave it in an extra day until Wednesday. He can either do this at home or come by the office and have it removed. Encouraged him to follow up in the office in 1 month regarding stone analysis and followup. Encouraged him to remain hydrated, drinking mostly water. Discussed oxalate diet and trying to limit intake of high oxalate foods. We will continue to monitor while inpatient. cc: MD MINERVA Tatum
--- NOTE | 2020-01-04 09:36 | DISCHARGE SUMMARY ---
ADMISSION DATE: 12/31/2019 DISCHARGE DATE: 01/03/2020 DISPOSITION: Home. FOLLOWUP: Dr. Ibarra. CONSULTATION DURING THIS ADMISSION: Urology was consulted, patient was seen by Dr. Ibarra. INVASIVE PROCEDURES DONE DURING THIS ADMISSION: A cystoscopy, left ureteroscopy with stone basket extraction, a left retrograde pyelogram and a left ureteral stent placement was done by Dr. Ibarra on 01/01/2020. ADMISSION DIAGNOSES: 1. Bilateral nephrolithiasis with left ureterolithiasis with obstructive changes. 2. Left epididymal cyst. 3. Acute kidney injury. 4. Nausea and vomiting. 5. Fluid volume depletion. DIAGNOSES AT THE TIME OF DISCHARGE: 1. Left obstructive ureterolithiasis. 2. Acute kidney injury secondary to obstructive uropathy. 3. Syncope secondary to vasovagal reaction. 4. Nausea and vomiting secondary to nephrolithiasis. 5. Left epididymal cyst but no evidence of torsion. 6. Bilateral nephrolithiasis noted. DISCHARGE MEDICATIONS: 1. Tamsulosin 0.4 mg b.i.d. 2. Pyridium 100 mg p.o. q.8. 3. Frida Colace 1 tab b.i.d. 4. [place] 5 one tablet q.4 p.r.n. PRESENTING COMPLAINT: Abdominal pain. HISTORY OF PRESENTING COMPLAINT: Mr. Bustamante is a 24-year-old male who has no chronic past medical history, comes to the emergency room because of acute onset of left-sided abdominal pain that was radiating into his scrotum. Upon presentation, patient was evaluated in the ER. A scrotal ultrasound was done which showed epididymal cyst, but no torsion. A CT scan of the abdomen and pelvis did show bilateral nephrolithiasis with distal left ureterolithiasis and obstructive changes on the left. The patient was admitted to the medical floor for further care. HOSPITAL COURSE: Mr Bustamante was admitted to the medical floor, was started on IV antibiotics and adequate fluid resuscitation. Urology was consulted. He was seen by Dr. Ibarra. A decision was made to take Mr. Bustamante to the OR for exploration. Mr. Bustamante successfully underwent the urological procedure on 01/01/[address] Ibarra. Please refer to the details of the surgical report in the chart. Postoperatively, Mr. Bustamante refers to be doing well. No new complaints. The left abdominal pain and testicular discomfort has significantly improved. This morning, we think Mr. Bustamante is stable to be discharged. He is going to follow up with Dr. Ibarra. His laboratory data has also been reviewed. His creatinine which had gone up to 2.7, is down to 2.4. He has been advised to continuously hydrate himself, repeat his renal function tests within 1 week and follow it up with Dr. Ibarra as well as his primary care doctor. All the discharge instructions have been discussed with Mr. Bustamante and voiced understanding. The mother was at the bedside at the time of the encounter. TIME SPENT FOR DISCHARGE: 32 minutes. cc: Jose Miguel Mota MD
== END 2020-01-03 13:25 | disposition home or self-care (01) | DRG 661 ==
LOC: P.ED 16:50 → SUATTDRO 21:47 → 3N 21:47
PROVIDERS: ATTEND Internal Medicine